=== PATIENT | female | born 1975 | race African-American/Black ===

== ENCOUNTER 2021-04-03 18:07 | Emergency (ER) | payer OTHER ==
[~2021-04-03] VITALS: Ht 167.6 cm; Wt 68.0 kg
[2021-04-03 18:35] LABS: URINE BILIRUBIN NEGATIVE (Negative); URINE BLOOD 3+ (Negative); URINE CLARITY CLEAR; URINE COLOR YELLOW; URINE GLUCOSE-RANDOM* NEGATIVE (Negative); URINE KETONES NEGATIVE (Negative); URINE LEUKOCYTES-REFLEX NEGATIVE (Negative); URINE NITRITE-REFLEX NEGATIVE (Negative); URINE PROTEIN (DIPSTICK) NEGATIVE (Negative); URINE SPECIFIC GRAVITY <= 1.005 (1.005-1.035); URINE UROBILINOGEN 0.2 E.U./dl (0.2-1.0)
[2021-04-03 18:39] LABS: ABSOLUTE NEUTROPHILS 5.1 thou/uL (1.4-8.2); BASOPHILS 0.8 % (0.0-2.0); EOSINOPHILS 4.5 % (0.0-3.0); HEMATOCRIT 37.3 % (37.0-47.0); HEMOGLOBIN 12.4 gm/dL (12.0-15.0); LYMPHOCYTES 23.8 % (24.0-44.0); MCH 30.5 pg (26.0-34.0); MCHC 33.3 g/dL (28.0-37.0); MCV 91.6 fL (80.0-100.0); MONOCYTES 10.4 % (1.0-8.0); PLATELET COUNT 276 thou/uL (150-400); POLYS 60.5 % (36.0-66.0); RBC 4.07 mil/uL (4.20-5.00); RDW 12.9 % (10.5-14.5); WBC 8.4 thou/uL (4.0-11.0)
[2021-04-03] MEDS ORDERED: LISINOPRIL20 MG PO (18:40)
[2021-04-03 18:49] LABS: CREATININE 1.1 mg/dL (0.6-1.0); POTASSIUM 3.7 mmol/L (3.5-5.1)
[2021-04-03 18:51] LABS: BACTERIA-REFLEX 1-9 Few /HPF (None Seen); CASTS None Seen /LPF (None Seen); CRYSTALS None Seen /LPF (None Seen); SQUAMOUS 0-3 Few /LPF (0-3); URINE RBC 3-10 Few /HPF (NONE SEEN); URINE WBC-REFLEX 0-5 Rare /HPF (0-5)
[2021-04-03 18:54] LABS: ALBUMIN 3.8 g/dL (3.4-5.0); TOTAL BILIRUBIN 0.6 mg/dL (0.2-1.0); TOTAL PROTEIN 8.6 g/dL (6.4-8.2)
[2021-04-03] MEDS ORDERED: CIPRO500 M1 PO (20:09)
[2021-04-03] MEDS ORDERED: NORCO5 PO (20:09)
[2021-04-03] MEDS ORDERED: FLAGYL500 M1 PO (20:09)
[2021-04-03 20:23] VITALS: BP 121/85
[2021-04-03] MEDS ORDERED: DIFLUCAN150 MG PO (20:23)
[2021-04-03] MEDS ORDERED: ZOFRAN ODT4 MG PO (20:23)
[2021-04-03] MEDS ORDERED: AUGMENTIN 875-1 EACH PO (20:23)
== END 2021-04-03 20:23 | disposition home or self-care (01) ==
LOC: ER 18:07
PROVIDERS: Physician Assistant
DX: K57.32 Diverticulitis of large intestine without perforation or abscess without bleeding (principal); I10 Essential (primary) hypertension; Z88.2 Allergy status to sulfonamides; Z79.899 Other long term (current) drug therapy